=== PATIENT | male | born 1955 | race Caucasian/White ===

== ENCOUNTER 2018-10-28 02:21 | Observation (INO) ==
[2018-10-28] MEDS ORDERED: ASPIRIN PO ONE ×2 (02:36→02:44)
[2018-10-28] MEDS ORDERED: ASPIRIN PR ONE (02:36)
[2018-10-28] MEDS ORDERED: MORPHINE IV ONE ×2 (02:42→05:48)
--- NOTE | 2018-10-28 02:45 | PROVIDER DOCUMENTATION ---
HPI-General Adult - General Chief Complaint: Chest Pain Stated Complaint: CHEST PAIN Time Seen by Provider: 10/28/18 02:36 Source: patient Allergies/Adverse Reactions: Patient Allergies Allergy/AdvReac Type Severity Reaction Status Date / Time No Known Allergies Allergy Verified 09/06/16 01:16 Home Medications: Home Medication List Medication Instructions Recorded Confirmed Last Taken Type Cyclobenzaprine [Flexeril] 10 mg PO PRN PRN 12/01/13 09/06/16 Unknown History Hydrocodone/APAP 10 mg/325 mg 1 each PO Q8H PRN PRN 09/06/16 09/06/16 Unknown History [Chaplin-10] Lisinopril 40 mg PO DAILY #90 tablet 09/06/16 Unknown Rx Modafinil 200 mg PO DAILY 09/06/16 09/06/16 Unknown History - History of Present Illness -Gen Adult Nature of Presenting Problems: Pt presents with cp, x 3 weeks, comes and goes, acutely worse tonight, substernal, sharp to pressure, pt denies f/c mckeon, sob, cough, ap, n/v/d. Pt is lying in bed in no acute distress. Location of Pain/Injury: reports: chest Pain Radiation: reports: no radiation Quality of Pain: reports: pressure, sharp Severity: reports: moderate Onset/Duration: reports: other (3 weeks) Timing: reports: still present Context/Activities at Onset: reports: none Modifying Factors: improves with: nothing Associated Symptoms: reports: denies symptoms Similar Symptoms Previously?: No Recently seen or treated by another doctor?: No Review of Systems - Adult - REVIEW OF SYSTEMS - ADULT Constitutional: reports: no symptoms reported Eyes: reports: no symptoms reported Ears, Nose, Mouth & Throat: reports: no symptoms reported Cardiovascular: reports: see HPI Respiratory: reports: no symptoms reported Gastrointestinal: reports: no symptoms reported Genitourinary: reports: no symptoms reported Musculoskeletal: reports: no symptoms reported Integumentary: reports: no symptoms reported Neurological: reports: no symptoms reported Psychiatric: reports: no symptoms reported Endocrine: reports: no symptoms reported Hematologic/Lymphatic: reports: no symptoms reported Allergic/Immunologic: reports: no symptoms reported All Other Systems: Reviewed and Negative Past History - Adult - PAST MEDICAL HISTORY-ADULT Review of Records: reports: Old Records Reviewed, Nursing Assessment Review, Medications Reviewed, Social history reviewed & non-contributory. Major Childhood Illnesses: reports: denies history Cardiovascular: reports: CHF Respiratory: reports: denies history Gastrointestinal: reports: denies history Genitourinary: reports: denies history Musculoskeletal: reports: chronic pain, intervertebral disc disease Neurological: reports: denies history Psychiatric: reports: denies history Endocrine/Immune: reports: denies history Other Conditions: reports: denies history - IMMUNIZATION STATUS Childhood Immunizations: See Nurse Assessment Flu Vaccine: See Nurse Assessment - FAMILY HISTORY Family History: reviewed, not pertinent Physical Exam-General - PHYSICAL EXAM-ADULT Initial Vital Signs Reviewed: Yes - CONSTITUTIONAL General Appearance: appears well - EYES Eyes: PERRL/EOMI - HEAD, EARS, NOSE, MOUTH & THROAT HENMT: normocephalic/atraumatic - NECK Neck: normal inspection - RESPIRATORY Respiratory: lungs clear, no respiratory distress, no accessory muscle use - CARDIOVASCULAR Cardiovascular: regular rate, rhythm - GASTROINTESTINAL (ABDOMEN) Abdominal Exam: non tender, soft - LYMPHATIC Lymphatic: no adenopathy - MUSCULOSKELETAL Back Exam: normal inspection Extremity: normal range of motion - SKIN Integumentary: normal color - NEUROLOGIC Neurologic: grossly normal - PSYCHIATRIC Psych/Mental Status: normal mood/affect Progress - PLAN OF CARE/RESULTS Progress/Plan/Lab Results: Vital Signs - 8 hr 10/28/18 02:33 Temperature 98.8 F Pulse Rate 98 H Respiratory Rate 20 Blood Pressure 197/111 O2 Sat by Pulse Oximetry 98 Orders Category Date Time Status Cardiac Monitoring DIRECTED Care 10/28/18 02:36 Active Oxygen Therapy- ED Nursing DIRECTED Care 10/28/18 02:36 Active Saline Loc NOW Care 10/28/18 02:36 Active CHEST-2 VIEWS [RAD] Stat Exams 10/28/18 02:36 Ordered CBC WITH ELECTRONIC DIFF [HEME] Stat Lab 10/28/18 02:36 Uncollected CK PROFILE [SP CHEM] Stat Lab 10/28/18 02:36 Uncollected COMPREHENSIVE METABOLIC PANEL [CHEM] Stat Lab 10/28/18 02:36 Uncollected PRO B-NATRIURETIC PEPTIDE Stat Lab 10/28/18 02:36 Uncollected PROTIME WITH INR [COAG] Stat Lab 10/28/18 02:36 Uncollected PTT [COAG] Stat Lab 10/28/18 02:36 Uncollected TROPONIN T Stat Lab 10/28/18 02:36 Uncollected Aspirin Med 10/28/18 02:36 Discontinued 300 mg MA NOW ONE Aspirin Med 10/28/18 02:36 Discontinued 325 mg PO NOW ONE Morphine Med 10/28/18 02:42 Once 4 mg IV NOW ONE CP/SOB/Palp >45 yrs of Age Stat Oth 10/28/18 02:36 Ordered EKG [EKG] Stat Ther 10/28/18 02:24 Ordered Given heart score and risk factors will admit for ACS workup, spoke with Dr. Barry and he accepted the admission Result Diagrams: 10/28/18 02:44 10/28/18 02:44 Departure - Departure Date of Disposition Decision: 10/28/18 Time of Disposition Decision: 05:45 DIAGNOSIS: Chest pain Qualifiers: Chest pain type: other chest pain Qualified Code(s): R07.89 - Other chest pain; R07.8 - Other chest pain Disposition: ADMITTED INPATIENT 09 Certified Medical Emergency: Emergent Condition: Stable Referrals and Follow-Ups: Alex Iverson MD [Primary Care Provider] - - Critical Care Note This patient required my direct & personal management of CC.: No Attestation - Physician/ KATT Attestation Patient care was provided by Advanced Practice Provider:: No The physician spent face to face time with patient:: Yes Advanced Practice Provider documentation review:: Supervising physician onsite and consulted in the evaluation and care of this patient. The physician did have a face to face encounter with the patient.
[2018-10-28] MEDS ORDERED: ZOFRAN IV ONE ×2 (02:58→05:48)
[2018-10-28 03:21] LABS: BASO# 0.05 X1000 (0.0-0.2); BASO% 0.6 % (0.0-0.8); EOS# 0.31 X1000 (0.0-0.7); EOS% 3.4 % (0.0-10.0); HEMATOCRIT 41.3 % (42.0-52.0); HEMOGLOBIN 14.3 g/dL (14.0-18.0); LYMPH# 2.43 X1000 (1.2-3.4); LYMPH% 26.8 % (20.5-51.1); MCH 33.6 PG (27-31); MCHC 34.6 g/dL (33-37); MCV 96.9 FL (81-99); MONO# 0.59 X1000 (0.11-0.59); MONO% 6.5 % (1.7-9.3); MPV 9.9 FL (7.4-10.4); NEUT# 5.68 X1000 (1.4-6.5); NEUT% 62.7 % (42.2-75.2); PLT 204 X1000 (130-400); RBC 4.26 XMIL (4.7-6.1); RDW 14.2 % (11.5-14.5); WBC 9.06 X1000 (4.8-10.8)
[2018-10-28 03:24] LABS: INR 1.01; PROTIME 13.5 Seconds (11.0-16.0)
[2018-10-28 03:25] LABS: PTT 31.4 Seconds (22.3-41.8)
[2018-10-28 03:55] LABS: AGAP 12; ALB/GLOB RATIO 1.8; ALBUMIN 4.2 g/dL (3.5-5.0); ALKALINE PHOSPHATASE 106 U/L (32-122); BUN 12 mg/dL (8-22); CALCIUM 9.1 mg/dL (8.8-10.2); CHLORIDE 105 mmol/L (98-107); CK PROFILE 73 U/L (24-204); COSMO 285; CREATININE 0.9 mg/dL (0.7-1.2); ESTIMATED GFR > 60; GLUCOSE 131 mg/dL (70-104); GOT 15 U/L (10-34); GPT 21 U/L (10-44); POTASSIUM 3.8 mmol/L (3.5-5.1); SODIUM 142 mmol/L (136-145); TCO2 25 mmol/L (25-35); TOTAL BILIRUBIN 0.26 mg/dL (0.20-1.00); TOTAL PROTEIN 6.6 g/dL (6.3-8.3)
--- NOTE | 2018-10-28 05:10 | EKG Report ---
Test Performed on : 10/28/2018 02:29:09 AM Test Reason : chest pain Blood Pressure : / mmHG Vent. Rate : 103 BPM Atrial Rate : 103 BPM P-R Int : 178 ms QRS Dur : 110 ms QT Int : 352 ms P-R-T Axes : 058 -04 017 degrees QTc Int : 461 ms Sinus tachycardia. Cannot rule out Inferior infarct , age undetermined Abnormal ECG When compared with ECG of 06-SEP-2016 03:00, Minimal criteria for Inferior infarct are now present Unconfirmed Result
[2018-10-28] MEDS ORDERED: NITROGLYCERIN SL ONE (06:00)
[2018-10-28] MEDS ORDERED: LOPRESSOR PO ONE (06:05)
[2018-10-28] MEDS ORDERED: LASIX IV ONE (06:05)
--- NOTE | 2018-10-28 07:09 | HISTORY AND PHYSICAL ---
PRIMARY CARE PROVIDER: None. REASON FOR ADMISSION: Chest pain 8 hours ago. HISTORY: Mr. Kwesi Holcomb is a 62-year-old man with a past medical history of hypertension and chronic low back pain. In 2017, he underwent a stress test for chest pain which was negative. He comes in today to be awakened by pressure-like chest pain with no radiation, and shows some slight shortness of breath, but no nausea, vomiting or palpitations. No cough, fever, or chills. He has been having slight leg swelling over the last few days, and reports that since 09/08 he has lost his job and his daughter . He has no insurance, and is under a lot of stress. He says he feels depressed, but no overt suicidal ideation at this point in time. REVIEW OF SYSTEMS: Other than leg swelling, no PND or orthopnea. No GI or complaints. No focal neurological complaints. He states he has a headache. This has come on over the last 12 hours. ALLERGIES: None. MEDICATIONS: He takes lisinopril 40 mg and [place] 10 mg. FAMILY HISTORY: Notable for heart disease in first-degree relatives. PAST SURGICAL HISTORY: Nil. SOCIAL HISTORY: He smokes one pack a day. No alcohol or illicit drug use. Lives alone. LABORATORY: EKG showed heart rate of 103 with normal sinus tachycardia and questionable Q-waves in the inferior leads. White count 9000, hemoglobin and hematocrit 14 and 41, and platelets 204,000. BUN 12, creatinine 0.9, and glucose 113. Troponin's negative. CK is normal. PTT is normal. Chest film reviewed by me no gross infiltrates. Heart is normal size. Questionable mild pulmonary vascular congestion. PHYSICAL EXAMINATION: VITAL SIGNS: Blood pressure 197/110, heart rate 98, respirations 20, temperature is 98.9 degrees, and 98% on room air. GENERAL: Obese, middle-aged man who is very anxious with sad affect. Depressed mood. He is alert and oriented to person, place, and time with normal mood and affect. HEENT: Head is normocephalic, atraumatic. Eyes: PERRLA, EOMI. He is anicteric, not pale. ENT exam is grossly normal. NECK: The patient has mild JVD. No bruit. No thyromegaly. CHEST: Bibasilar crepitations. No wheezes. Good air entry both lung sanders. CARDIOVASCULAR: First 2nd and 4th heart sounds heard. Rhythm is regular. ABDOMEN: Protuberant, soft, and nontender. No megaly. Bowel sounds are normal. RECTAL: Deferred at this time. EXTREMITIES: Patient has trace edema of both lower extremities with good distal pulse. Volume symmetrical and regular. NEUROLOGICAL: No gross focal deficits. SKIN: Intact. No breakdown. MUSCULOSKELETAL: Exam is grossly normal. ASSESSMENT: 1. Chest pain syndrome. 2. Hypertensive heart disease. 3. Hyperglycemia. 4. Probable clinical depression. PLAN: The patient became NPO. He has been given morphine twice, he says his pain is down to a 1/10. I will consult Cardiology to decide if the patient can proceed with a stress test if enzymes are negative, and is asymptomatic. Otherwise, patient may need cardiac catheterization if the pain still persists, and then may be considered unstable angina. The patient is under a lot of stress, and I am very concerned that being alone and under a lot of stress from recently losing his job and losing his daughter. This patient might need to be closely evaluated for clinical depression and potentially may need a psychiatric screen before he is discharged. For now, aspirin, statins, and beta blockers have been given. I have also given him some Lasix to take because he may have early signs of mild fluid overload. Recommend also add on echocardiogram to evaluate his LV function. cc: Alejandra Daniels MD
[2018-10-28] MEDS ORDERED: LIPITOR PO ONE (07:16)
[2018-10-28] MEDS ORDERED: LOVENOX SUBQ SCH (07:16)
[2018-10-28] MEDS ORDERED: ZOFRAN IV PRN (07:16)
[2018-10-28] MEDS ORDERED: TYLENOL PO PRN (07:16)
[2018-10-28] MEDS ORDERED: NORCO-10 PO PRN (07:16)
[2018-10-28] MEDS ORDERED: NICODERM PATCH TD ONE (07:16)
[2018-10-28] MEDS ORDERED: MORPHINE IV PRN (07:16)
--- NOTE | 2018-10-28 07:35 | Diag Imaging Result Doc PS360 ---
EXAM: CHEST-PORTABLE 10/28/2018 HISTORY: cp TECHNIQUE: AP portable at 0301 COMMENT: There is a granuloma in the left upper lobe. There is no evidence of acute cardiac or pulmonary disease. Compared to 09/06/2016 there has been no significant change in the appearance of the chest. IMPRESSION: Stable chest. Electronically signed by Christiano Land 10/28/2018 7:32 AM
--- NOTE | 2018-10-28 07:43 | EKG Report ---
Test Performed on : 10/28/2018 07:36:29 AM Test Reason : chest pain Blood Pressure : / mmHG Vent. Rate : 070 BPM Atrial Rate : 070 BPM P-R Int : 202 ms QRS Dur : 110 ms QT Int : 398 ms P-R-T Axes : 037 022 016 degrees QTc Int : 429 ms Normal sinus rhythm. Normal ECG When compared with ECG of 28-OCT-2018 02:29, (Unconfirmed) Minimal criteria for Inferior infarct are no longer present Confirmed by Ariadne Hull MD ([id number]) on 10/28/2018 12:07:24 PM
[2018-10-28 08:12] LABS: HEMOGLOBIN A1C 5.2 % (4.8-6.0)
[2018-10-28] MEDS ORDERED: PHENERGAN IV PRN (08:59)
[2018-10-28] MEDS ORDERED: SODIUM CHLORIDE 0.9% INJ PRN (08:59)
[2018-10-28] MEDS ORDERED: ASPIRIN PO SCH (09:00)
[2018-10-28] MEDS ORDERED: PRINIVIL PO SCH (09:00)
[2018-10-28] MEDS ORDERED: PRILOSEC PO SCH (09:00)
[2018-10-28] MEDS ORDERED: APRESOLINE IV PRN (09:04)
[2018-10-28] MEDS ORDERED: HEPARIN 1000 UNITS/NS 2,000 UNIT/1,000 ML IV.SOLN ONE (09:29)
[2018-10-28] MEDS ORDERED: NORVASC PO SCH (09:30)
[2018-10-28] MEDS ORDERED: XYLOCAINE 1% ONE (09:30)
[2018-10-28] MEDS ORDERED: NITROGLYCERIN TOP SCH (09:30)
[2018-10-28] MEDS ORDERED: NITROGLYCERIN ONE (09:32)
--- NOTE | 2018-10-28 10:00 | CARDIOLOGY CONSULTATION ---
DATE: 10/28/2018 CONSULTATION REQUESTED BY: Hospitalist service. REASON FOR CONSULTATION: Chest pain. HISTORY: Mr. Holcomb is an unfortunate 62-year-old male, who presented to the emergency room on October 28 at 2:43 in the morning, complaining of recurrent chest pain. The pains have been happening for the past several weeks, and they are precipitated by effort. They tend to happen more often in the evening hours when he performs physical activity, not so much in the morning hours. The patient has been under tremendous emotional stress. On October 08, he was laid off from [employer], and the same day, his daughter in an automobile accident. He has felt pressure in the chest ever since, intermittent. It is definitely worsened by physical activity. PAST MEDICAL HISTORY: Significant for dyslipidemia, hyperlipidemia. He has high triglycerides. He has hypertension for a number of years. The patient has no prior history of diabetes mellitus. He has chronic back pain. He has had a kidney stone in the past. He has reportedly had depression. He also has acid reflux. Back in October 2016, the patient received a stress test that showed a partially reversible inferior wall defect. At that time, he was advised to pursue heart catheterization; however, he declined. SURGICAL HISTORY: Positive for skin cancer removed and also wisdom teeth removed. HOME MEDICATIONS: Included hydrocodone, lisinopril 40 mg daily. ALLERGIES: He is not allergic to anything. SOCIAL HISTORY: He is . He had 1 daughter who just just few weeks ago in an accident, October 08. He is a smoker of half a pack of cigarettes a day. He had been working at [employer] for many years. He just was laid off 3 weeks ago. FAMILY HISTORY: Both parents had coronary heart disease. REVIEW OF SYSTEMS: Besides the chest pain and chronic back pain, nothing significant. PHYSICAL EXAMINATION: Vital signs: Blood pressure 180/101, temperature 98.7 degrees, pulse 73, respirations 15. General: Patient is awake, alert, oriented, in no distress. HEENT: Unremarkable. Chest: Clear to auscultation and percussion. Heart: Sounds regular and rhythmic. No gallop or murmur. Abdomen: Nontender. No masses. No hepatomegaly. Extremities: Good pulses. No peripheral edema. Neurologic: Nonfocal. Moves 4 extremities. DIAGNOSTIC STUDIES: Blood work: White cell count 9060, hemoglobin 14.3. Sodium 142, potassium 3.8, BUN 12, creatinine 0.9. Triglycerides 75, cholesterol 216, HDL 24, LDL 106. ProBNP is 107. A chest x-ray shows stable findings. EKG shows sinus rhythm and no ischemic changes. IMPRESSION: 1. Patient who presents with increasing chest pain, exertional and at rest, angina pectoris functional class III to IV. 2. Uncontrolled hypertension. 3. Abnormal Myocardial Perfusion stress test as of October 2016. 4. Dyslipidemia/hyperlipidemia. 5. Family history of heart disease. 6. Chronic back pain. RECOMMENDATION: At this time, we will try to optimize his blood pressure. We will add nitroglycerin paste, amlodipine. I have explained to him that probably the best course of action is to pursue heart catheterization. The benefits, risks, and complications of heart catheterization were discussed. He understood and requested to proceed. We will make arrangements. Further advice will be forthcoming. cc: Alex Iverson MD MTDD
[2018-10-28] MEDS ORDERED: DEMEROL ONE (10:31)
[2018-10-28] MEDS ORDERED: VERSED ONE (10:31)
[2018-10-28] MEDS ORDERED: CLAVE TWINSITE 32 IN 11959 ONE (10:32)
[2018-10-28] MEDS ORDERED: ANESTHESIA PB SET 88 IN 5742 ONE (10:32)
[2018-10-28] MEDS ORDERED: NS 1,000 ML ONE (10:32)
[2018-10-28 11:56] VITALS: BP 154/85
--- NOTE | 2018-10-28 12:25 | EKG Report ---
Test Performed on : 10/28/2018 12:18:25 PM Test Reason : post heart cath Blood Pressure : / mmHG Vent. Rate : 062 BPM Atrial Rate : 062 BPM P-R Int : 202 ms QRS Dur : 110 ms QT Int : 438 ms P-R-T Axes : 038 016 -01 degrees QTc Int : 444 ms Normal sinus rhythm. Normal ECG When compared with ECG of 28-OCT-2018 07:36, No significant change was found Confirmed by Ariadne Hull MD ([id number]) on 10/29/2018 12:25:02 PM
--- NOTE | 2018-10-28 15:12 | CARDIAC CATH REPORT ---
DATE: 10/28/2018 PROCEDURES: 1. Left heart catheterization. 2. Selective bilateral coronary arteriography. 3. Left ventriculography. 4. Opacification of the right femoral artery with deployment of 6 Sudanese Angio- Seal device. HISTORY: A 62-year-old male known to me with hypertension and a history of an abnormal stress test in 2017 that showed partial reversibility of the inferior wall of the left ventricle. Back then, we had a discussion with the patient about proceeding with heart catheterization, however, he declined. At this time, he presented emergently with unstable angina. Because of the known abnormal stress test and his current presentation with chest pains basically at rest was recommended to do heart catheterization to define his coronary anatomy. Benefits, risks and complications were discussed. He understood and requested to proceed. DESCRIPTION: The patient came in to the cardiac component lab tech in a fasting state. The right groin was prepped and draped in a sterile fashion, anesthetized with lidocaine 1%. A 6 Sudanese sheath was inserted into the right femoral artery by following the modified Seldinger technique. Thereafter using 6 Sudanese 4 left and right Stuart catheter, the left and right coronary artery were sequentially opacified in multiple projections. We gave the patient 2 mg of Versed and 50 mg of Demerol in divided doses for sedation. Then, we advanced a 6 Sudanese pigtail catheter into the left ventricular chamber. Left ventriculogram was performed in the 30 degree SOTELO projection with caudal angulation by injecting 42 mL of Omnipaque at 11 mL/sec. Then, the pigtail catheter was removed, the sheath was flushed. The right femoral artery opacified then Angio-Seal device was deployed successfully. The patient tolerated the procedure well without complication. SUMMARY OF HEMODYNAMIC FINDINGS: Central aortic pressure is 126/73, left ventricular pressure 121/4. Post LV gram pressure 121/8. Final central aortic pressure 121/71. SUMMARY OF THE ANGIOGRAPHIC FINDINGS: 1. Left main coronary artery: The vessel has a normal proximal portion. Distally, it shows a 40% to 50% discrete stenosis. This stenosis continues into the LAD. The LAD appears to be diffusely narrow by 30% to 40%. Gives rise to a very large septal branch, then it shows an additional 40% to 50% stenosis. Then at the point of origin of a major diagonal branch, which is a 2 mm vessel, the LAD displays a 75% to 80% discrete stenosis. The LAD thereafter has a caliber of 1.8 mm and continues down to the apex of the left ventricle. 2. Ramus intermedius versus circumflex coronary artery: This vessel originates from the left main. It shows a diffuse narrowing of about 20% to 30%, gives rise to a high lateral branch. There is a kink in the mid portion of the vessel and then there is an obtuse marginal branch that comes off followed by an additional bifurcating obtuse marginal vessel. This distal "circumflex" appears to be free of obstruction. 3. Right coronary artery: The right coronary artery is a dominant system. There is an additional vessel that originates just above the ostium of a main right that could represent a rudimentary anomalous circumflex. This vessel has a retroaortic course and it seems to course towards the high lateral wall of the heart. This vessel is very small in caliber and it gives rise to a collateral that supplies the terminal portion of the distal right coronary artery. 4. Right coronary artery proper: This vessel gives rise to sinus tangela branch. It shows a proximal diffuse 90% stenosis. The vessel distally shows competition of flow coming from the collateral circulation. The terminal branches of the right coronary artery, the PDA, and the posterolateral vessel appear to be good enough or big enough to accept a graft especially the posterior ventricular lateral branch. They are well-visualized through collateral circulation. LEFT VENTRICULOGRAM: Left ventriculogram in the 30 degree SOTELO projection with caudal angulation shows generally preserved ejection fraction of left ventricle, ejection fraction is measured at 50% to 55% with a focal area of akinesis in the basal inferior wall. No mitral regurgitation is noted. OPACIFICATION OF THE RIGHT FEMORAL ARTERY: The right femoral artery is free of any significant stenosis. Angio-Seal device was deployed successfully. There are mild atherosclerotic changes. SUMMARY: This study shows: 1. Severe coronary artery disease with a severe stenosis of the LAD at the origin of the major diagonal branch. The left main proper has 40% to 50% distal stenosis. The right coronary artery, which is dominant, has a 90% proximal tubular stenosis. 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 2. Preserved ejection fraction of the left ventricle at 50% to 55% with a focal area of impairment of the basal inferior wall. 3. Normal LVEDP. 4. No mitral regurgitation, no aortic stenosis. 5. Unremarkable right femoral artery. Successful deployment of Angio-Seal device. RECOMMENDATIONS: The patient will be treated with maximal medical therapy at this time and he will be referred to [facility] for opinion regarding whether or not proceed with a coronary bypass procedure or percutaneous intervention. The patient tolerated the procedure without complications. cc: Alex Iverson MD MTDD
[2018-10-28] MEDS ORDERED: LIPITOR PO SCH (21:00)
[2018-10-29] MEDS ORDERED: LOFIBRA PO SCH (09:00)
--- NOTE | 2018-10-29 13:42 | DISCHARGE SUMMARY ---
ADMISSION DATE: 10/28/2018 DISCHARGE DATE: 10/28/2018 DISCHARGE DIAGNOSES: 1. Acute coronary artery disease. 2. Hypertensive heart disease. 3. Hyperlipidemia. 4. Clinical depression. CONSULTATIONS: Dr. Iverson from Cardiology. PROCEDURES: 1. Chest x-ray done on admission showed stable chest. 2. Cardiac catheterization showed severe coronary artery disease with severe stenosis of the LAD at the origin of the major diagonal branch of 40% to 50% distal stenosis, and the right coronary artery which is dominant has a 90% tubular stenosis, and the recommendation is to be referred to [facility] for coronary artery bypass or stenting. HOSPITAL COURSE: In brief, this is a patient who was brought to the emergency department complaining of chest pain. Two years ago, he underwent a stress test for chest pain, which was negative. Actually, this patient comes to the hospital because he was awakened by a pressure-like chest pain with no radiation. Evaluated by Cardiology. They decide to emergent catheterization with results as above so the patient was transferred to [facility] for further evaluation and treatment. At this point, we have continued with all his home medications. cc: Jey Lam MD
== END 2018-10-28 13:44 | disposition short-term general hospital (02) ==
LOC: ED 02:21 → 2N 02:21 → SUATTDRO 02:22
PROVIDERS: ATTEND Internal Medicine